=== PATIENT | female | born 1950 | race Caucasian/White ===

== ENCOUNTER 2017-07-27 22:29 | Inpatient (IN) | payer MEDICARE, OTHER ==
[2017-07-27 23:13] LABS: ADD MAN DIFF? NO
[2017-07-27 23:17] LABS: BASOPHIL # 0.1 10^3/ul (0.0-0.1); BASOPHILS % 0.4 % (0.0-2.0); EOSINOPHILS % 0.2 % (0.0-7.0); HEMATOCRIT 32.4 % (37.0-47.0); HEMOGLOBIN 10.3 g/dl (12.0-16.0); LYMPHOCYTES # 1.7 10^3/ul (0.8-2.9); LYMPHOCYTES % 15.3 % (15.0-51.0); MEAN CORPUSCULAR HEMOGLOBIN 26.5 pg (29.0-33.0); MEAN CORPUSCULAR HGB CONC 31.8 g/dl (32.0-37.0); MEAN CORPUSCULAR VOLUME 83.5 fl (82.0-101.0); MEAN PLATELET VOLUME 9.6 fl (7.4-10.4); MONOCYTE # 1.1 10^3/ul (0.3-0.9); MONOCYTES % 10.2 % (0.0-11.0); NEUTROPHIL # 8.2 10^3/ul (1.6-7.5); NEUTROPHILS % 73.4 % (39.0-77.0); PLATELET COUNT 195 10^3/UL (140-415); RED BLOOD COUNT 3.88 10^6/ul (4.20-5.40); RED CELL DISTRIBUTION WIDTH 17.1 % (11.5-14.5)
[2017-07-27 23:17] LABS: WHITE BLOOD COUNT 11.1 10^3/ul (4.8-10.8)
[2017-07-27] MEDS: SOD CHLORIDE 0.9% 1,000 ML IV (23:25)
[2017-07-27] MEDS: morphine 2 MG INJ IV (23:29)
[2017-07-27] MEDS: ONDANSETRON 4 MG INJ IV (23:29)
[2017-07-27 23:34] LABS: ALANINE AMINOTRANSFERASE 19 IU/L (13-69); ALBUMIN 3.6 g/dl (3.3-4.9); ALBUMIN/GLOBULIN RATIO 1.24; ALKALINE PHOSPHATASE 79 IU/L (42-121); ANION GAP 16 (8-16); ASPARTATE AMINO TRANSFERASE 15 IU/L (15-46); BLOOD UREA NITROGEN 34 mg/dl (7-20); CARBON DIOXIDE 27 mmol/L (21-31); CHLORIDE 98 mmol/L (97-110); CREATININE 1.98 mg/dl (0.44-1.00); GLUCOSE 376 mg/dl (70-220); LIPASE 47 U/L (23-300); POTASSIUM 4.2 mmol/L (3.5-5.1); SODIUM 137 mmol/L (135-144); TOTAL PROTEIN 6.5 g/dl (6.1-8.1)
[2017-07-27 23:35] LABS: LACTIC ACID 1.5 mmol/L (0.5-2.0)
[2017-07-27 23:49] LABS: TROPONIN-I 0.228 ng/ml (0.00-0.12)
[2017-07-27 23:55] LABS: URINE BLOOD (Dip) POC Trace-lysed (NEGATIVE); URINE GLUCOSE (Dip) POC Negative (NEGATIVE); URINE KETONES (Dip) POC Negative (NEGATIVE); URINE LEUKOCYTE EST (Dip) POC Negative (NEGATIVE); URINE NITRITE (Dip) POC Positive (NEGATIVE); URINE TOTAL PROTEIN POC 2+ (NEGATIVE)
[2017-07-27 23:55] LABS: URINE PH (Dip) POC 5.5 (5.0-8.5)
[2017-07-28 00:25] LABS: ADD UMIC YES; UR ASCORBIC ACID NEGATIVE (NEGATIVE); UR BACTERIA FEW /HPF (NONE SEEN); UR BILIRUBIN (Dip) NEGATIVE (NEGATIVE); UR BLOOD (Dip) 1+ mg/dL (NEGATIVE); UR CLARITY CLOUDY (CLEAR); UR COLOR AMBER (YELLOW); UR GLUCOSE (Dip) 1+ mg/dL (NEGATIVE); UR KETONES (Dip) NEGATIVE (NEGATIVE); UR LEUKOCYTE ESTERASE (Dip) TRACE Leu/ul (NEGATIVE); UR NITRITE (Dip) NEGATIVE (NEGATIVE); UR RBC 1 /HPF (0-5); UR SPECIFIC GRAVITY (Dip) 1.018 (1.003-1.030); UR SQUAMOUS EPITHELIAL CELL FEW /HPF (FEW); UR TOTAL PROTEIN (Dip) 2+ mg/dl (NEGATIVE); UR UROBILINOGEN (Dip) NEGATIVE (NEGATIVE); UR WBC 12 /HPF (0-5)
[2017-07-28 00:27] LABS: B-TYPE NATRIURETIC PEPTIDE 9370 PG/ML (0-125)
[2017-07-28] MEDS: SOD CHLORIDE 0.9% 1,000 ML IV ×3 (00:45→03:05)
[2017-07-28] MEDS: ASPIRIN 81 MG TAB PO (00:54)
[2017-07-28] MEDS: CEFEPIME 2GM/50 ML (PMX) 50 ML IVPB ×2 (00:55→01:57)
[2017-07-28 03:57] LABS: LACTIC ACID 1.4 mmol/L (0.5-2.0)
[2017-07-28] MEDS ORDERED: NACL 0.9% 3 ML SYG IV (05:00)
[2017-07-28] MEDS ORDERED: ONDANSETRON 4 MG INJ IV (05:00)
[2017-07-28] MEDS ORDERED: ALBUTEROL/IPRATROPIUM (NEB) 3 ML AMP HHN (05:00)
[2017-07-28] MEDS ORDERED: morphine 2 MG INJ IV (05:00)
[2017-07-28 05:35] LABS: CREATINE KINASE 245 IU/L (23-200)
[2017-07-28 05:35] LABS: LACTIC ACID 1.3 mmol/L (0.5-2.0)
[2017-07-28 05:48] LABS: CK INDEX 0.8; CK-MB 1.86 ng/ml (0.0-2.4); TROPONIN-I 0.124 ng/ml (0.00-0.12)
[2017-07-28] MEDS: metroNIDAZOLE 500 MG/NS (PMX) 100 ML IVPB ×3 (06:54→23:44)
[2017-07-28 07:33] LABS: ADD MAN DIFF? NO
[2017-07-28 07:39] LABS: BASOPHILS % 0.4 % (0.0-2.0); EOSINOPHILS # 0.1 10^3/ul (0.0-0.5); EOSINOPHILS % 0.8 % (0.0-7.0); HEMATOCRIT 29.2 % (37.0-47.0); HEMOGLOBIN 9.2 g/dl (12.0-16.0); LYMPHOCYTES # 1.6 10^3/ul (0.8-2.9); LYMPHOCYTES % 17.4 % (15.0-51.0); MEAN CORPUSCULAR HEMOGLOBIN 26.7 pg (29.0-33.0); MEAN CORPUSCULAR HGB CONC 31.5 g/dl (32.0-37.0); MEAN CORPUSCULAR VOLUME 84.6 fl (82.0-101.0); MEAN PLATELET VOLUME 10.3 fl (7.4-10.4); MONOCYTES % 10.9 % (0.0-11.0); NEUTROPHIL # 6.3 10^3/ul (1.6-7.5); NEUTROPHILS % 69.8 % (39.0-77.0); PLATELET COUNT 173 10^3/UL (140-415); RED BLOOD COUNT 3.45 10^6/ul (4.20-5.40); RED CELL DISTRIBUTION WIDTH 17.3 % (11.5-14.5)
[2017-07-28 07:45] LABS: ALANINE AMINOTRANSFERASE 24 IU/L (13-69); ALBUMIN 3.1 g/dl (3.3-4.9); ALKALINE PHOSPHATASE 71 IU/L (42-121); ANION GAP 16 (8-16); ASPARTATE AMINO TRANSFERASE 17 IU/L (15-46); BLOOD UREA NITROGEN 34 mg/dl (7-20); CALCIUM 7.3 mg/dl (8.4-10.2); CARBON DIOXIDE 24 mmol/L (21-31); CHLORIDE 107 mmol/L (97-110); CREATININE 1.69 mg/dl (0.44-1.00); GLUCOSE 314 mg/dl (70-220); MAGNESIUM 1.6 mg/dl (1.7-2.5); PHOSPHORUS 3.2 mg/dl (2.5-4.9); POTASSIUM 4.5 mmol/L (3.5-5.1); SODIUM 142 mmol/L (135-144); TOTAL PROTEIN 5.9 g/dl (6.1-8.1)
[2017-07-28] MEDS: CEFTRIAXONE 1 GM/50 ML (PMX) 50 ML IVPB ×2 (08:50→21:56)
[2017-07-28] MEDS: HEPARIN 5,000 UNIT/0.5 ML VIAL SC ×2 (08:56→22:09)
[2017-07-28] MEDS ORDERED: CEFTRIAXONE 1 GM/50 ML (PMX) 50 ML IVPB (09:00)
[2017-07-28] MEDS ORDERED: GLUCOSE GEL 15 GRAM TUBE BUCCAL (10:00)
[2017-07-28] MEDS ORDERED: GLUCOSE GEL 15 GRAM TUBE PO ×2 (10:00)
[2017-07-28] MEDS ORDERED: DEXTROSE 50% 50 ML SYRINGE IV ×2 (10:00)
[2017-07-28] MEDS ORDERED: GLUCAGON 1 MG INJ IM (10:00)
[2017-07-28] MEDS: Discontinue current oral sulfonylureas (glyburide, glipizide, and/or glimepiride) prior to XX (10:24)
[2017-07-28] MEDS: HYPOGLYCEMIA PROTOCOL when Glucose is <70 mg/dL or symptomatic <90 mg/dL. XX (10:24)
[2017-07-28 12:57] LABS: CREATINE KINASE 245 IU/L (23-200)
[2017-07-28 13:08] LABS: CK INDEX 0.6; CK-MB 1.56 ng/ml (0.0-2.4); TROPONIN-I 0.056 ng/ml (0.00-0.12)
[2017-07-28] MEDS: INSULIN ASPART [NOVOLOG] 3 ML PEN SC ×6 (13:45→23:46)
[2017-07-28] MEDS: ACETAMINOPHEN 325 MG TAB PO (18:23)
[2017-07-29] MEDS: ACCU-CHEK XX (02:00)
[2017-07-29 04:12] LABS: CREATININE,URINE RANDOM 160.64 mg/dl (20-320)
[2017-07-29 04:12] LABS: SODIUM,URINE RANDOM 82 mmol/L (30-90)
[2017-07-29 04:39] LABS: ADD UMIC YES; UR ASCORBIC ACID NEGATIVE (NEGATIVE); UR BACTERIA FEW /HPF (NONE SEEN); UR BILIRUBIN (Dip) 2+ mg/dL (NEGATIVE); UR BLOOD (Dip) 2+ mg/dL (NEGATIVE); UR CLARITY SLIGHTLY CLOUDY (CLEAR); UR COLOR AMBER (YELLOW); UR GLUCOSE (Dip) 2+ mg/dL (NEGATIVE); UR KETONES (Dip) NEGATIVE (NEGATIVE); UR LEUKOCYTE ESTERASE (Dip) 3+ Leu/ul (NEGATIVE); UR NITRITE (Dip) NEGATIVE (NEGATIVE); UR NONSQUAMOUS EPITHELIAL CELL 2 /HPF (NONE SEEN); UR RBC 3 /HPF (0-5); UR SPECIFIC GRAVITY (Dip) 1.021 (1.003-1.030); UR SQUAMOUS EPITHELIAL CELL MANY /HPF (FEW); UR TOTAL PROTEIN (Dip) 1+ mg/dl (NEGATIVE); UR UROBILINOGEN (Dip) 2+ mg/dL (NEGATIVE); UR WBC 22 /HPF (0-5)
[2017-07-29 05:41] LABS: ADD MAN DIFF? NO
[2017-07-29 05:54] LABS: BASOPHILS % 0.4 % (0.0-2.0); EOSINOPHILS # 0.1 10^3/ul (0.0-0.5); EOSINOPHILS % 1.7 % (0.0-7.0); HEMATOCRIT 27.4 % (37.0-47.0); HEMOGLOBIN 8.7 g/dl (12.0-16.0); LYMPHOCYTES # 1.2 10^3/ul (0.8-2.9); LYMPHOCYTES % 17.1 % (15.0-51.0); MEAN CORPUSCULAR HEMOGLOBIN 26.7 pg (29.0-33.0); MEAN CORPUSCULAR HGB CONC 31.8 g/dl (32.0-37.0); MEAN PLATELET VOLUME 10.2 fl (7.4-10.4); NEUTROPHIL # 4.8 10^3/ul (1.6-7.5); NEUTROPHILS % 66.2 % (39.0-77.0); PLATELET COUNT 168 10^3/UL (140-415); RED BLOOD COUNT 3.26 10^6/ul (4.20-5.40); RED CELL DISTRIBUTION WIDTH 17.2 % (11.5-14.5)
[2017-07-29 05:54] LABS: WHITE BLOOD COUNT 7.2 10^3/ul (4.8-10.8)
[2017-07-29 06:17] LABS: ALANINE AMINOTRANSFERASE 20 IU/L (13-69); ALBUMIN 3.3 g/dl (3.3-4.9); ALBUMIN/GLOBULIN RATIO 1.26; ALKALINE PHOSPHATASE 69 IU/L (42-121); ANION GAP 14 (8-16); ASPARTATE AMINO TRANSFERASE 17 IU/L (15-46); BLOOD UREA NITROGEN 29 mg/dl (7-20); CALCIUM 8.1 mg/dl (8.4-10.2); CARBON DIOXIDE 26 mmol/L (21-31); CHLORIDE 106 mmol/L (97-110); CREATININE 1.53 mg/dl (0.44-1.00); GLUCOSE 271 mg/dl (70-220); MAGNESIUM 1.7 mg/dl (1.7-2.5); POTASSIUM 4.5 mmol/L (3.5-5.1); SODIUM 141 mmol/L (135-144); TOTAL PROTEIN 5.9 g/dl (6.1-8.1)
[2017-07-29] MEDS: metroNIDAZOLE 500 MG/NS (PMX) 100 ML IVPB ×3 (06:43→21:37)
[2017-07-29] MEDS ORDERED: NON-FORMULARY/PATIENT OWN MED (Omeprazole* 20 MG) PO (08:00)
[2017-07-29] MEDS ORDERED: ERGOCALCIFEROL 50000 UNIT PO (08:00)
[2017-07-29] MEDS: INSULIN GLARGINE [LANtus] 3 ML PEN SC (08:43)
[2017-07-29] MEDS: INSULIN ASPART [NOVOLOG] 3 ML PEN SC ×7 (08:44→20:37)
[2017-07-29] MEDS ORDERED: CHOLECALCIFEROL 400 UNITS TAB PO (09:00)
[2017-07-29] MEDS: GABAPENTIN 300 MG CAP PO ×3 (10:02→20:32)
[2017-07-29] MEDS: CEFTRIAXONE 1 GM/50 ML (PMX) 50 ML IVPB ×2 (10:02→20:29)
[2017-07-29] MEDS: FOLIC ACID 1 MG TAB PO (10:03)
[2017-07-29] MEDS: CHOLECALCIFEROL 1,000 UNIT TAB PO (10:03)
[2017-07-29] MEDS: HEPARIN 5,000 UNIT/0.5 ML VIAL SC ×2 (10:05→20:36)
[2017-07-29] MEDS: MAGNESIUM SULFATE 2 GM/50 ML 50 ML IVPB (10:07)
[2017-07-29 10:58] LABS: IRON 24 ug/dl (35-150)
[2017-07-29 11:07] LABS: % IRON SATURATION 10 % SAT (22-52); TOTAL IRON BINDING CAPACITY 249 ug/dl (241-421)
[2017-07-29] MEDS: PANTOPRAZOLE (EC) 40 MG TAB PO (12:19)
[2017-07-29] MEDS: ATORVASTATIN 40 MG TAB PO (20:31)
[2017-07-30] MEDS: ACCU-CHEK XX (02:03)
[2017-07-30 05:30] LABS: ADD MAN DIFF? NO
[2017-07-30 05:36] LABS: BASOPHILS % 0.4 % (0.0-2.0); EOSINOPHILS # 0.2 10^3/ul (0.0-0.5); EOSINOPHILS % 2.8 % (0.0-7.0); HEMATOCRIT 24.8 % (37.0-47.0); LYMPHOCYTES # 1.2 10^3/ul (0.8-2.9); LYMPHOCYTES % 18.5 % (15.0-51.0); MEAN CORPUSCULAR HEMOGLOBIN 26.8 pg (29.0-33.0); MEAN CORPUSCULAR HGB CONC 32.3 g/dl (32.0-37.0); MEAN CORPUSCULAR VOLUME 83.2 fl (82.0-101.0); MEAN PLATELET VOLUME 9.7 fl (7.4-10.4); MONOCYTE # 1.1 10^3/ul (0.3-0.9); MONOCYTES % 16.8 % (0.0-11.0); NEUTROPHIL # 4.1 10^3/ul (1.6-7.5); NEUTROPHILS % 61.4 % (39.0-77.0); PLATELET COUNT 157 10^3/UL (140-415); RED BLOOD COUNT 2.98 10^6/ul (4.20-5.40); RED CELL DISTRIBUTION WIDTH 17.4 % (11.5-14.5)
[2017-07-30 05:36] LABS: WHITE BLOOD COUNT 6.7 10^3/ul (4.8-10.8)
[2017-07-30] MEDS: PANTOPRAZOLE (EC) 40 MG TAB PO (05:40)
[2017-07-30] MEDS: metroNIDAZOLE 500 MG/NS (PMX) 100 ML IVPB (05:40)
[2017-07-30 06:06] LABS: ALANINE AMINOTRANSFERASE 24 IU/L (13-69); ALBUMIN/GLOBULIN RATIO 1.07; ALKALINE PHOSPHATASE 76 IU/L (42-121); ANION GAP 15 (8-16); ASPARTATE AMINO TRANSFERASE 16 IU/L (15-46); BLOOD UREA NITROGEN 35 mg/dl (7-20); CALCIUM 8.2 mg/dl (8.4-10.2); CARBON DIOXIDE 24 mmol/L (21-31); CHLORIDE 105 mmol/L (97-110); CREATININE 1.66 mg/dl (0.44-1.00); GLUCOSE 224 mg/dl (70-220); POTASSIUM 4.6 mmol/L (3.5-5.1); SODIUM 139 mmol/L (135-144); TOTAL PROTEIN 5.8 g/dl (6.1-8.1)
[2017-07-30 06:57] LABS: CREATININE,URINE RANDOM 183.02 mg/dl (20-320)
[2017-07-30 06:58] LABS: PROTEIN/CREAT RATIO 0.14 RATIO
[2017-07-30] MEDS: FOLIC ACID 1 MG TAB PO (08:39)
[2017-07-30] MEDS: HEPARIN 5,000 UNIT/0.5 ML VIAL SC ×2 (08:39→22:05)
[2017-07-30] MEDS: CHOLECALCIFEROL 1,000 UNIT TAB PO (08:39)
[2017-07-30] MEDS: GABAPENTIN 300 MG CAP PO ×3 (08:39→22:00)
[2017-07-30] MEDS: INSULIN GLARGINE [LANtus] 3 ML PEN SC (08:42)
[2017-07-30] MEDS: INSULIN ASPART [NOVOLOG] 3 ML PEN SC ×7 (08:43→22:04)
[2017-07-30 10:19] LABS: PHOSPHORUS 2.8 mg/dl (2.5-4.9)
[2017-07-30 10:19] LABS: MAGNESIUM 2.1 mg/dl (1.7-2.5)
[2017-07-30] MEDS: CEPHALEXIN 500 MG CAP PO ×2 (12:13→22:01)
[2017-07-30 13:37] LABS: OCCULT BLOOD STOOL NEGATIVE (NEGATIVE)
[2017-07-30 14:22] LABS: CREATININE, RANDOM URINE 182 mg/dL (20-320); MICROALBUMIN 7.6 mg/dL; MICROALBUMIN/CREATININE RATIO 42 (<30)
[2017-07-30] MEDS: SOD FERRIC GLUC COMPLX 125 MG in SOD CHLORIDE 0.9% 100 ML IVPB (16:35)
[2017-07-30] MEDS: ATORVASTATIN 40 MG TAB PO (22:01)
[2017-07-31] MEDS: ACCU-CHEK XX (02:29)
[2017-07-31 06:01] LABS: ADD MAN DIFF? NO
[2017-07-31 06:09] LABS: BASOPHIL # 0.1 10^3/ul (0.0-0.1); BASOPHILS % 0.7 % (0.0-2.0); EOSINOPHILS # 0.3 10^3/ul (0.0-0.5); EOSINOPHILS % 4.8 % (0.0-7.0); HEMATOCRIT 26.5 % (37.0-47.0); HEMOGLOBIN 8.3 g/dl (12.0-16.0); LYMPHOCYTES # 1.6 10^3/ul (0.8-2.9); LYMPHOCYTES % 22.6 % (15.0-51.0); MEAN CORPUSCULAR HEMOGLOBIN 26.6 pg (29.0-33.0); MEAN CORPUSCULAR HGB CONC 31.3 g/dl (32.0-37.0); MEAN CORPUSCULAR VOLUME 84.9 fl (82.0-101.0); MONOCYTES % 14.7 % (0.0-11.0); NEUTROPHILS % 56.2 % (39.0-77.0); PLATELET COUNT 189 10^3/UL (140-415); RED BLOOD COUNT 3.12 10^6/ul (4.20-5.40); RED CELL DISTRIBUTION WIDTH 17.5 % (11.5-14.5)
[2017-07-31] MEDS: PANTOPRAZOLE (EC) 40 MG TAB PO (06:13)
[2017-07-31 06:35] LABS: ALANINE AMINOTRANSFERASE 21 IU/L (13-69); ALBUMIN 3.2 g/dl (3.3-4.9); ALBUMIN/GLOBULIN RATIO 1.18; ALKALINE PHOSPHATASE 76 IU/L (42-121); ANION GAP 14 (8-16); ASPARTATE AMINO TRANSFERASE 14 IU/L (15-46); BLOOD UREA NITROGEN 42 mg/dl (7-20); CALCIUM 8.5 mg/dl (8.4-10.2); CARBON DIOXIDE 27 mmol/L (21-31); CHLORIDE 104 mmol/L (97-110); CREATININE 1.61 mg/dl (0.44-1.00); GLUCOSE 177 mg/dl (70-220); MAGNESIUM 2.1 mg/dl (1.7-2.5); PHOSPHORUS 3.7 mg/dl (2.5-4.9); POTASSIUM 4.7 mmol/L (3.5-5.1); SODIUM 140 mmol/L (135-144); TOTAL PROTEIN 5.9 g/dl (6.1-8.1)
[2017-07-31] MEDS: GABAPENTIN 300 MG CAP PO ×2 (08:30→12:31)
[2017-07-31] MEDS: FOLIC ACID 1 MG TAB PO (08:30)
[2017-07-31] MEDS: CHOLECALCIFEROL 1,000 UNIT TAB PO (08:30)
[2017-07-31] MEDS: CEPHALEXIN 500 MG CAP PO (08:30)
[2017-07-31] MEDS: INSULIN ASPART [NOVOLOG] 3 ML PEN SC ×4 (08:32→12:31)
[2017-07-31] MEDS: INSULIN GLARGINE [LANtus] 3 ML PEN SC (08:35)
[2017-07-31] MEDS: HEPARIN 5,000 UNIT/0.5 ML VIAL SC (08:37)
[2017-07-31] MEDS: SOD FERRIC GLUC COMPLX 125 MG in SOD CHLORIDE 0.9% 100 ML IVPB (15:59)
[2017-07-31] MEDS ORDERED: INSULIN ASPART [NOVOLOG] 3 ML PEN SC (18:00)
[2017-08-01] MEDS ORDERED: INSULIN GLARGINE [LANtus] 3 ML PEN SC (08:00)
[2017-08-01] MEDS ORDERED: LINAGLIPTIN 5 MG TABLET PO (09:00)
[2017-08-03] MEDS ORDERED: ERGOCALCIFEROL 50,000 UNIT CAP PO (08:40)
== END 2017-07-31 17:50 | disposition home health service (06) | DRG 683 ==
LOC: MS2 07-29 00:47 → E/R 22:29 → MS2 07-28 14:48
DX: N17.9 Acute kidney failure, unspecified (principal); N39.0 Urinary tract infection, site not specified; E11.22 Type 2 diabetes mellitus with diabetic chronic kidney disease; I13.10 Hypertensive heart and chronic kidney disease without heart failure, with stage 1 through stage 4 chronic kidney disease, or unspecified chronic kidney disease; Z68.42 Body mass index [BMI] 45.0-49.9, adult; E66.01 Morbid (severe) obesity due to excess calories; N18.3 Chronic kidney disease, stage 3 (moderate); E78.00 Pure hypercholesterolemia, unspecified; M81.0 Age-related osteoporosis without current pathological fracture; E11.65 Type 2 diabetes mellitus with hyperglycemia; M06.9 Rheumatoid arthritis, unspecified; R19.7 Diarrhea, unspecified; R74.8 Abnormal levels of other serum enzymes; G47.33 Obstructive sleep apnea (adult) (pediatric); E11.610 Type 2 diabetes mellitus with diabetic neuropathic arthropathy; E86.0 Dehydration; B96.20 Unspecified Escherichia coli [E. coli] as the cause of diseases classified elsewhere; D50.9 Iron deficiency anemia, unspecified; Z87.891 Personal history of nicotine dependence
CPT/HCPCS: 36415; 71045; 76775; 80053; 81001; 81003; 82043; 82270; 82550; 82553; 82570; 82728; 82962; 83036; 83540; 83605; 83690; 83735; 83880; 84100; 84155; 84300; 84484; 85025; 87040; 87045; 87075; 87086; 93005; 93306; 93880; 96365; 96372; 96375; 96376; 97110; 97116; 97162; 97530; 99285-25